=== PATIENT | male | born 1965 | race Two or more races ===

== ENCOUNTER → 2019-12-09 | Outpatient (CLI) | payer OTHER ==
[~2019-12-09] VITALS: Ht 182.9 cm; Wt 76.7 kg
== END | disposition home or self-care (01) ==
LOC: ECT 12:48
DX: F33.3 Major depressive disorder, recurrent, severe with psychotic symptoms (principal); E78.5 Hyperlipidemia, unspecified; Z79.899 Other long term (current) drug therapy; Z91.5 Personal history of self-harm; Z81.8 Family history of other mental and behavioral disorders; R45.851 Suicidal ideations

== ENCOUNTER 2019-12-11 08:51 | Outpatient (RCR) | payer OTHER ==
[~2019-12-11] VITALS: Ht 183.5 cm; Wt 76.7 kg
[2019-12-11 08:48] VITALS: BP 125/85
[~2019-12-11 08:51] MED LIST: Ketorolac 30mg Inj ONE; Methohexital Sodium Syr 100mg/10ml IVP ONE; NS 500ML ONE; Succinylcholine 20mg/ml 10ml vial ONE
[2019-12-11 09:01] VITALS: BP 129/54
[2019-12-11 09:06] VITALS: BP 115/68
[2019-12-11 09:11] VITALS: BP 120/67
[2019-12-11 09:16] VITALS: BP 124/77
[2019-12-11 12:24] VITALS: BP 130/70
[2019-12-13] MEDS ORDERED: NS 500ML ONE (06:00)
[2019-12-13] MEDS ORDERED: Methohexital Sodium Syr 100mg/10ml IVP ONE (06:00)
[2019-12-13] MEDS ORDERED: Succinylcholine 20mg/ml 10ml vial ONE (06:00)
[2019-12-13] MEDS ORDERED: Ketorolac 30mg Inj ONE (06:00)
[2019-12-13 08:24] VITALS: BP 115/78
[2019-12-13 08:36] VITALS: BP 173/84
[2019-12-13 08:41] VITALS: BP 126/59
[2019-12-13 08:46] VITALS: BP 121/58
[2019-12-13 08:51] VITALS: BP 118/58
[2019-12-16] MEDS ORDERED: Ketorolac 30mg Inj ONE (09:00)
[2019-12-16] MEDS ORDERED: NS 500ML ONE (09:00)
[2019-12-16] MEDS ORDERED: Succinylcholine 20mg/ml 10ml vial ONE (09:00)
[2019-12-16] MEDS ORDERED: Midazolam 2mg/2ml Inj ONE (09:00)
[2019-12-16] MEDS ORDERED: Methohexital Sodium Syr 100mg/10ml IVP ONE (09:00)
[2019-12-16 11:00] VITALS: BP 124/78
[2019-12-16] MEDS ORDERED: Atropine Sulfate 0.4mg/ml inj IVP PRN (11:24)
[2019-12-16] MEDS ORDERED: Lidocaine 2% 100mg/5ml Carp IV PRN (11:24)
[2019-12-16 11:25] VITALS: BP 109/58
[2019-12-16 11:30] VITALS: BP 113/64
[2019-12-16 11:35] VITALS: BP 106/59
[2019-12-16 11:40] VITALS: BP 108/55
[2019-12-18] MEDS ORDERED: NS 500ML ONE (06:00)
[2019-12-18] MEDS ORDERED: Methohexital Sodium Syr 100mg/10ml IVP ONE (06:00)
[2019-12-18] MEDS ORDERED: Succinylcholine 20mg/ml 10ml vial ONE (06:00)
[2019-12-18] MEDS ORDERED: Midazolam 2mg/2ml Inj ONE (06:00)
[2019-12-18] MEDS ORDERED: Ketorolac 30mg Inj ONE (06:00)
[2019-12-18 11:38] VITALS: BP 114/75
[2019-12-18 12:38] VITALS: BP 114/75
[2019-12-18 13:10] VITALS: BP 118/72
[2019-12-18] MEDS ORDERED: Lidocaine 2% 100mg/5ml Carp IV PRN (13:10)
[2019-12-18] MEDS ORDERED: Atropine Sulfate 0.4mg/ml inj IVP PRN (13:10)
[2019-12-18 13:15] VITALS: BP 118/65
[2019-12-18 13:20] VITALS: BP 113/64
[2019-12-18 13:25] VITALS: BP 134/76
[2019-12-20] MEDS ORDERED: NS 500ML ONE (06:00)
[2019-12-20] MEDS ORDERED: Ketorolac 30mg Inj ONE (06:00)
[2019-12-20] MEDS ORDERED: Succinylcholine 20mg/ml 10ml vial ONE (06:00)
[2019-12-20] MEDS ORDERED: Midazolam 2mg/2ml Inj ONE (06:00)
[2019-12-20] MEDS ORDERED: Methohexital Sodium Syr 100mg/10ml IVP ONE (06:00)
[2019-12-20 10:57] VITALS: BP 119/73
[2019-12-20 11:14] VITALS: BP 113/71
[2019-12-20 11:19] VITALS: BP 122/74
[2019-12-20 11:24] VITALS: BP 123/61
[2019-12-20 11:29] VITALS: BP 127/70
[2019-12-23] MEDS ORDERED: Succinylcholine 20mg/ml 10ml vial ONE (09:00)
[2019-12-23] MEDS ORDERED: Midazolam 2mg/2ml Inj ONE (09:00)
[2019-12-23] MEDS ORDERED: Ketorolac 30mg Inj ONE (09:00)
[2019-12-23] MEDS ORDERED: Methohexital Sodium Syr 100mg/10ml IVP ONE (09:00)
[2019-12-23] MEDS ORDERED: NS 500ML ONE (09:00)
[2019-12-23 11:33] VITALS: BP 126/74
[2019-12-23] MEDS ORDERED: Atropine Sulfate 0.4mg/ml inj IVP PRN (11:54)
[2019-12-23] MEDS ORDERED: Lidocaine 2% 100mg/5ml Carp IV PRN (11:54)
[2019-12-23 11:55] VITALS: BP 124/63
[2019-12-23 12:00] VITALS: BP 121/66
[2019-12-23 12:05] VITALS: BP 130/63
[2019-12-23 12:10] VITALS: BP 123/73
== END 2019-12-24 | disposition home or self-care (01) ==
LOC: ECT 08:51
DX: F33.3 Major depressive disorder, recurrent, severe with psychotic symptoms (principal)
CPT/HCPCS: 90870; J0330; J1885; J2250; J7040

== ENCOUNTER 2019-12-25 10:50 | Outpatient (RCR) | payer OTHER ==
[~2019-12-25] VITALS: Ht 182.9 cm; Wt 76.7 kg
[~2019-12-25 10:50] MED LIST changes: +Midazolam 2mg/2ml Inj ONE
[2019-12-25 11:19] VITALS: BP 118/72
[2019-12-25 11:30] VITALS: BP 135/76
[2019-12-25 11:35] VITALS: BP 125/71
[2019-12-25 11:40] VITALS: BP 131/78
[2019-12-25 11:45] VITALS: BP 139/78
[2019-12-30] MEDS ORDERED: NS 500ML ONE (06:00)
[2019-12-30] MEDS ORDERED: Succinylcholine 20mg/ml 10ml vial ONE (06:00)
[2019-12-30] MEDS ORDERED: Midazolam 2mg/2ml Inj ONE (06:00)
[2019-12-30] MEDS ORDERED: Methohexital Sodium Syr 100mg/10ml IVP ONE (06:00)
[2019-12-30] MEDS ORDERED: Ketorolac 30mg Inj ONE (06:00)
[2019-12-30 10:31] VITALS: BP 109/79
[2019-12-30] MEDS ORDERED: Lidocaine 2% 100mg/5ml Carp IV PRN (10:49)
[2019-12-30] MEDS ORDERED: Atropine Sulfate 0.4mg/ml inj IVP PRN (10:49)
[2019-12-30 10:50] VITALS: BP 115/59
[2019-12-30 10:55] VITALS: BP 112/56
[2019-12-30 11:00] VITALS: BP 108/62
[2019-12-30 11:05] VITALS: BP 125/70
[2020-01-06] MEDS ORDERED: Ketorolac 30mg Inj ONE (07:00)
[2020-01-06] MEDS ORDERED: Methohexital Sodium Syr 100mg/10ml IVP ONE (07:00)
[2020-01-06] MEDS ORDERED: Succinylcholine 20mg/ml 10ml vial ONE (07:00)
[2020-01-06] MEDS ORDERED: Midazolam 2mg/2ml Inj ONE (07:00)
[2020-01-06] MEDS ORDERED: NS 500ML ONE (07:00)
[2020-01-06 10:58] VITALS: BP 140/82
[2020-01-06] MEDS ORDERED: Atropine Sulfate 0.4mg/ml inj IVP PRN (11:14)
[2020-01-06] MEDS ORDERED: Lidocaine 2% 100mg/5ml Carp IV PRN (11:14)
[2020-01-06 11:15] VITALS: BP 129/69
[2020-01-06 11:20] VITALS: BP 122/64
[2020-01-06 11:25] VITALS: BP 129/75
[2020-01-06 11:30] VITALS: BP 138/87
== END 2020-01-24 | disposition home or self-care (01) ==
LOC: ECT 10:50
DX: F33.3 Major depressive disorder, recurrent, severe with psychotic symptoms (principal)
CPT/HCPCS: 90870; J0330; J1885; J2250; J7040